=== PATIENT | female | born 1960 | race Caucasian/White ===

== ENCOUNTER 2023-07-12 10:52 | Day surgery (SDC) | payer OTHER ==
[~2023-07-12] VITALS: Ht 149.9 cm; Wt 69.4 kg
[~2023-07-12 10:52] MED LIST: DEXAMETHASONE SOD PHOSPHATE 4 MG/ML VIAL ONE; LIDOCAINE 2%, 20 ML MDV ONE; NORMAL SALINE 10 ML VIAL ONE; iopamidoL 50 ML VIAL IV ONE
[2023-07-12] MEDS ORDERED: DIPHENHYDRAMINE INJ 50 MG/ML VIAL ONE (12:56)
[2023-07-12] MEDS: MIDAZOLAM HCL 5 MG/5 ML VIAL ONE (13:35)
[2023-07-12] MEDS: fentaNYL CITRATE/PF 100 MCG/2 ML AMP ONE (13:38)
[2023-07-12 14:20] VITALS: O2SAT 99
[2023-07-12 18:28] VITALS: BP_SYST 121; PULSE 77; RESP 18
== END 2023-07-12 15:10 | disposition home or self-care (01) ==
LOC: SDS 10:52 → SMU 10:54 → SDS 15:10
PROVIDERS: ATTEND Internal Medicine
DX: M51.16 Intervertebral disc disorders with radiculopathy, lumbar region (principal); I10 Essential (primary) hypertension; J45.909 Unspecified asthma, uncomplicated; K21.9 Gastro-esophageal reflux disease without esophagitis; F32.A Depression, unspecified; F41.9 Anxiety disorder, unspecified; Z90.49 Acquired absence of other specified parts of digestive tract; Z98.890 Other specified postprocedural states; Z79.899 Other long term (current) drug therapy
CPT/HCPCS: 64483; 64484; J1100; J2250; J3010; Q9967; 76000; J1200; J2001